=== PATIENT | female | born 1955 | race American Indian/Alaskan Native ===

== ENCOUNTER 2017-03-14 23:32 | Emergency (ER) | payer OTHER ==
[2017-03-15 00:40] LABS: Basophils % (Auto) 0.8 % (0.0-1.8); Eosinophils % (Auto) 2.6 % (0.0-4.3); Hematocrit 44.3 % (30.3-42.9); Hemoglobin 14.1 gm/dl (10.1-14.3); Mean Corpuscular HGB Conc 32 % (30-34); Mean Corpuscular Hemoglobin 26 pg (28-32); Mean Corpuscular Volume 83 fl (79-97); Platelet Count 230 K/mm3 (140-440); Red Blood Count 5.36 M/mm3 (3.65-5.03); Red Cell Distribution Width 14.1 % (13.2-15.2); White Blood Count 10.3 K/mm3 (4.5-11.0)
[2017-03-15 00:51] LABS: INR 0.94 (0.87-1.13)
[2017-03-15 00:52] LABS: Partial Thromboplastin Time 25.3 Sec. (24.2-36.6)
[2017-03-15 00:55] LABS: Bacteria,Urine 1+ /HPF (Negative); Bilirubin,Urine NEG (Negative); Blood,Urine NEG (Negative); Ketones,Urine NEG (Negative); Leukocyte Esterase,Urine LG (Negative); Mucus,Urine FEW /HPF; Nitrite,Urine NEG (Negative); Protein,Urine <15 mg/dL mg/dL (Negative); Urobilinogen,Urine < 2.0 mg/dL (<2.0)
[2017-03-15 01:03] LABS: Anion Gap 20 mmol/L; BUN/Creatinine Ratio 22.85; Blood Urea Nitrogen 16 mg/dL (7-17); Calcium 9.4 mg/dL (8.4-10.2); Carbon Dioxide 23 mmol/L (22-30); Chloride 103.1 mmol/L (98-107); Glucose 143 mg/dL (65-100); Potassium 3.7 mmol/L (3.6-5.0); Sodium 142 mmol/L (137-145)
--- NOTE | 2017-03-15 02:25 | Cat Scan Report ---
FINAL REPORT PROCEDURE: CT HEAD/BRAIN WO CON TECHNIQUE: Computerized tomography of the head was performed without contrast material. HISTORY: LT ARM NUMBNESS SLURRED SPEECH EARLIER COMPARISON: No prior studies are available for comparison. FINDINGS: Skull and scalp: Normal. Paranasal sinuses: Normal. Ventricles and subarachnoid spaces: Normal. Cerebrum: No evidence of hemorrhage, acute infarction or mass . Cerebellum and brainstem: No evidence of hemorrhage, acute infarction or mass. Vasculature: Normal. Comments: None. IMPRESSION: Normal Examination
[2017-03-15 04:04] VITALS: BP 148/91
== END 2017-03-15 05:30 | disposition left against medical advice (07) ==
LOC: ED 23:32
DX: R07.9 Chest pain, unspecified (principal); R47.81 Slurred speech; Z53.21 Procedure and treatment not carried out due to patient leaving prior to being seen by health care provider
CPT/HCPCS: 36415; 70450; 80048; 81001; 84484; 85025; 85610; 85670; 85730; 93005; 93010

== ENCOUNTER 2017-09-27 19:18 | Inpatient (IN) | payer OTHER ==
[2017-09-27] MEDS ORDERED: ASPIRIN PO ONE (19:53)
[2017-09-27 20:15] LABS: Basophils # (Auto) 0.1 K/mm3 (0.0-0.1); Basophils % (Auto) 1.1 % (0.0-1.8); Eosinophils # (Auto) 0.2 K/mm3 (0.0-0.4); Eosinophils % (Auto) 1.8 % (0.0-4.3); Hematocrit 43.1 % (30.3-42.9); Hemoglobin 14.2 gm/dl (10.1-14.3); Lymphocytes # (Auto) 2.5 K/mm3 (1.2-5.4); Lymphocytes % (Auto) 25.8 % (13.4-35.0); Mean Corpuscular HGB Conc 33 % (30-34); Mean Corpuscular Hemoglobin 27 pg (28-32); Mean Corpuscular Volume 82 fl (79-97); Monocytes # (Auto) 0.6 K/mm3 (0.0-0.8); Monocytes % (Auto) 6.6 % (0.0-7.3); Platelet Count 239 K/mm3 (140-440); Red Blood Count 5.26 M/mm3 (3.65-5.03); Red Cell Distribution Width 14.1 % (13.2-15.2)
[2017-09-27 20:27] LABS: BUN/Creatinine Ratio 18; Blood Urea Nitrogen 11 mg/dL (7-17); Hemolysis Index 15
--- NOTE | 2017-09-27 22:06 | Emergency Department Report ---
HPI - General Chief Complaint: Chest Pain Time Seen by Provider: 09/27/17 21:33 - HPI HPI: 61 year-old female presents to the emergency department with the complaint of a 2-3 day history of some dizziness, feeling off balance, headache, jaw pain, chest pressure. She says that when she is walking she feels like she is falling or leaning to the left. She denies any slurring of her speech but sometimes feels like it is difficult to get the words out. She has a past medical history of diabetes, hypertension, hyperlipidemia and a previous TIA. She says that there is some family history and her mother and her sister of early heart disease. She has not taken anything for symptoms or presentation. She denies any tobacco or illicit drug use or abuse. No recent travel or sick contacts at home. Her primary care physician is a Dr. Ami Adame, but she has not seen them regarding her symptoms. ED Past Medical Hx - Past Medical History Previous Medical History?: Yes Hx Hypertension: Yes Hx Diabetes: Yes Additional medical history: TIA, High Cholestrol - Surgical History Past Surgical History?: Yes Additional Surgical History: Back SX - Social History Smoking Status: Never Smoker Substance Use Type: None - Medications Home Medications: Home Medications Medication Instructions Recorded Confirmed Last Taken Type AtorvaSTATin [Lipitor] 20 mg PO QHS 09/27/17 09/27/17 Unknown History Citalopram [celeXA] 10 mg PO QDAY 09/27/17 09/27/17 Unknown History amLODIPine [Norvasc] 5 mg PO DAILY 09/27/17 09/27/17 Unknown History metFORMIN [Glucophage] 500 mg PO DAILY 09/27/17 09/27/17 Unknown History ED Review of Systems ROS: Stated complaint: HTN,DIZZINESS,LEFT ARM,JAW PAIN Other details as noted in HPI Comment: All other systems reviewed and negative Constitutional: denies: chills, fever Eyes: denies: eye pain, eye discharge, vision change ENT: denies: ear pain, throat pain Respiratory: denies: cough, shortness of breath, wheezing Cardiovascular: chest pain. denies: edema Gastrointestinal: denies: abdominal pain, nausea, diarrhea Genitourinary: denies: urgency, dysuria, discharge Skin: denies: rash, lesions Neurological: headache, other (dizziness, dysequilibrium) Physical Exam - Physical Exam Vital Signs: Vital Signs 09/27/17 19:43 Temperature 98.3 F Pulse Rate 70 Respiratory 18 Rate Blood Pressure 153/77 O2 Sat by Pulse 98 Oximetry Physical Exam: GENERAL: The patient is well-developed well-nourished. HENT: Normocephalic. Atraumatic. Patient has moist mucous membranes. EYES: Extraocular motions are intact. Pupils equal reactive to light bilaterally. There is fatigable horizontal nystagmus. NECK: Supple. Trachea is midline. CHEST/LUNGS: Clear to auscultation. There is no respiratory distress noted. Chest pain is not reproducible to palpation of the chest wall. HEART/CARDIOVASCULAR: Regular. There is no tachycardia. There is no murmur. ABDOMEN: Abdomen is soft, nontender. Patient has normal bowel sounds. There is no abdominal distention. SKIN: Skin is warm and dry. NEURO: The patient is awake, alert, and oriented. The patient is cooperative. The patient has no focal neurologic deficits. The patient has normal speech. Cranial nerves II through XII grossly intact. No pronator drift. No dysmetria. MUSCULOSKELETAL: There is no tenderness or deformity. There is no limitation range of motion. There is no evidence of acute injury. ED Course Vital Signs 09/27/17 19:43 Temperature 98.3 F Pulse Rate 70 Respiratory 18 Rate Blood Pressure 153/77 O2 Sat by Pulse 98 Oximetry - Reevaluation(s) Reevaluation #1: The patient would be an NIH stroke scale of 0. Also the patient has been having these symptoms for a few days and therefore would not be a TPA candidate. 09/27/17 23:29 ED Medical Decision Making - Lab Data Result diagrams: 09/27/17 20:03 09/27/17 20:03 - EKG Data -: EKG Interpreted by Me EKG shows normal: sinus rhythm, axis (left axis deviation), intervals, QRS complexes (LVH, septal Q waves), ST-T waves Rate: normal - EKG Data When compared to previous EKG there are: previous EKG unavailable Interpretation: other (sinus rhythm, left axis deviation, LVH, Q waves to the septal leads) - Radiology Data Radiology results: report reviewed, image reviewed interpreted by me: Chest x-ray does not show any acute process. There are no pleural effusions, obvious pneumonia and there is no pneumothorax. PROCEDURE: CT head without contrast. TECHNIQUE: Computerized tomography of the head was performed without contrast material. HISTORY: Headache, dizziness. COMPARISON: CT head 03/14/2017. FINDINGS: The ventricles are normal in size. The arriaza matter and white matter appear normal. There are no mass lesions. There is no intracranial hemorrhage. The calvarium appears intact. The mastoid air cells and paranasal sinuses are clear as far as visualized. IMPRESSION: Normal study. Transcribed By: MRM Dictated By: CHINA SOLER MD Electronically Authenticated By: CHNIA SOLER MD Signed Date/Time: 09/27/17 5836 - Medical Decision Making Patient presents with headache, feelings of disequilibrium/dizziness, chest pain /pressure. She has the risk factors of hypertension, hyperlipidemia, diabetes and some family history of coronary artery disease. She has never had a stress test or at least not one recently. EKG does not show any ST elevation MN. Chest x-ray does not show any acute process. CT scan of the head does not show any bleed, shift, mass or any acute process. If this were some type of atypical stroke or TIA, the patient would be a 0 on the NIH stroke scale. However despite the patient's negative workup thus far, she has multiple risk factors and comorbidities towards coronary artery disease and still feels off balance when ambulating. She will be admitted to the hospital for further evaluation and has been accepted for admission by hospitalist, Dr. Alvarenga. - Differential Diagnosis MN, TIA, CVA, Vertigo, Dysrythmia Critical Care Time: No Critical care attestation.: If time is entered above; I have spent that time in minutes in the direct care of this critically ill patient, excluding procedure time. ED Disposition Clinical Impression: Dizziness Chest pain Qualifiers: Chest pain type: unspecified Qualified Code(s): R07.9 - Chest pain, unspecified Headache Qualifiers: Headache type: unspecified Headache chronicity pattern: unspecified pattern Intractability: not intractable Qualified Code(s): R51 - Headache Disposition: -09 OP ADMIT IP TO THIS HOSP Is pt being admited?: Yes Condition: Stable Instructions: Chest Pain (ED) Referrals: CHINA LEON MD [Primary Care Provider] - 3-5 Days Time of Disposition: 23:06
--- NOTE | 2017-09-27 22:58 | Cat Scan Report ---
FINAL REPORT PROCEDURE: CT head without contrast. TECHNIQUE: Computerized tomography of the head was performed without contrast material. HISTORY: Headache, dizziness. COMPARISON: CT head 03/14/2017. FINDINGS: The ventricles are normal in size. The arriaza matter and white matter appear normal. There are no mass lesions. There is no intracranial hemorrhage. The calvarium appears intact. The mastoid air cells and paranasal sinuses are clear as far as visualized. IMPRESSION: Normal study.
--- NOTE | 2017-09-27 23:13 | History and Physical Report ---
History of Present Illness Date of examination: 09/27/17 Chief complaint: Chest tightness History of present illness: 69-year-old -Citizen Of [place] female with past medical history significant for diabetes mellitus, neuropathy, hypertension, TIA presented to the emergency department complaining of chest heaviness as started this afternoon. Midsternal heaviness, 7 of 10 in intensity, constant, associated with his cough , no aggravating or aggravating factors identified. Patient said not feeling good for the last 2 days, feeling some dizziness, pain in the left arm. Patient didn't have any cardiac workup for the last 3 or 4 years. REVIEW OF SYSTEMS: GENERAL: no weight change, no fatigue, no fever HEAD: no head ache EYES: no blurry vision, no acute visual loss EARS: no hearing loss, no discharge, no earache NOSE: no stuffiness, no sneezing, no discharge MOUTH, THROAT AND NECK: no bleeding gums, no sore throat, no swollen neck CARDIAC: As stated in the HPI. RESPIRATORY: no shortness of breath, no wheeze, + cough, no sputum, no hemoptysis, no asthma GI: no decreased appetite, no nausea, no vomiting, no dysphagia, no diarrhea, no constipation, no abdominal pain URINARY: no change in frequency, no urgency, no polyuria, no hematuria, no incontinence MUSCULOSKELETAL: no muscle weakness, no pain, no joint stiffness NEUROLOGIC: no loss of sensation/numbness, no tingling, no tremors, no weakness/ paralysis HEMATOLOGIC: no anemia, no easy bruising SKIN: no rashes ENDOCRINE: no heat/cold intolerance, no polyuria, no polydipsia, no thyroid problems, + diabetes PSYCHIATRIC: no anxiety, no depression, no suicidal ideations Past History Past Medical History: diabetes, hypertension, hyperlipidemia Past Surgical History: Other (back surgery) Social history: full code. denies: smoking, alcohol abuse, prescription drug abuse, IV drug use Family history: no significant family history Medications and Allergies Allergies Allergy/AdvReac Type Severity Reaction Status Date / Time sulfamethoxazole Allergy Nausea Verified 09/27/17 19:49 [From Bactrim] trimethoprim [From Bactrim] Allergy Nausea Verified 09/27/17 19:49 Home Medications Medication Instructions Recorded Confirmed Last Taken Type AtorvaSTATin [Lipitor] 20 mg PO QHS 09/27/17 09/27/17 Unknown History Citalopram [celeXA] 10 mg PO QDAY 09/27/17 09/27/17 Unknown History amLODIPine [Norvasc] 5 mg PO DAILY 09/27/17 09/27/17 Unknown History metFORMIN [Glucophage] 500 mg PO DAILY 09/27/17 09/27/17 Unknown History Active Meds: Active Medications Heparin Sodium (Porcine) (Heparin) 5,000 unit SUB-Q Q8HR THERESA Exam - Physical Exam Narrative exam: Not in cardiopulmonary distress. The patient is obese. Vital signs as documented. Head exam is unremarkable. No scleral icterus . Neck is without jugular venous distension, thyromegaly, or carotid bruits. Lungs are clear to auscultation. Cardiac exam reveals regular rate and Rhythm. First and second heart sounds normal. No murmurs, rubs or gallops. Abdominal exam reveals normal bowel sounds, no masses, no organomegaly and no aortic enlargement. Extremities are nonedematous and both femoral and pedal pulses are normal. VIDEO [employer]: Alert and oriented 3. No focal weakness. - Constitutional Vitals: Temp Pulse Resp BP Pulse Ox 98.3 F 58 L 20 138/74 98 09/27/17 19:43 09/27/17 22:40 09/27/17 22:44 09/27/17 22:40 09/27/17 22:40 Results - Labs CBC & Chem 7: 09/28/17 00:52 09/28/17 00:52 Labs: Laboratory Last Values WBC 9.8 K/mm3 (4.5-11.0) 09/27/17 20:03 RBC 5.26 M/mm3 (3.65-5.03) H 09/27/17 20:03 Hgb 14.2 gm/dl (10.1-14.3) 09/27/17 20:03 Hct 43.1 % (30.3-42.9) H 09/27/17 20:03 MCV 82 fl (79-97) 09/27/17 20:03 MCH 27 pg (28-32) L 09/27/17 20:03 MCHC 33 % (30-34) 09/27/17 20:03 RDW 14.1 % (13.2-15.2) 09/27/17 20:03 Plt Count 239 K/mm3 (140-440) 09/27/17 20:03 Lymph % (Auto) 25.8 % (13.4-35.0) 09/27/17 20:03 [place] % (Auto) 6.6 % (0.0-7.3) 09/27/17 20:03 Eos % (Auto) 1.8 % (0.0-4.3) 09/27/17 20:03 Baso % (Auto) 1.1 % (0.0-1.8) 09/27/17 20:03 Lymph # 2.5 K/mm3 (1.2-5.4) 09/27/17 20:03 [place] # 0.6 K/mm3 (0.0-0.8) 09/27/17 20:03 Eos # 0.2 K/mm3 (0.0-0.4) 09/27/17 20:03 Baso # 0.1 K/mm3 (0.0-0.1) 09/27/17 20:03 Seg Neutrophils % 64.7 % (40.0-70.0) 09/27/17 20:03 Seg Neutrophils # 6.4 K/mm3 (1.8-7.7) 09/27/17 20:03 Sodium 143 mmol/L (137-145) 09/27/17 20:03 Potassium 4.4 mmol/L (3.6-5.0) 09/27/17 20:03 Chloride 102.6 mmol/L (98-107) 09/27/17 20:03 Carbon Dioxide 27 mmol/L (22-30) 09/27/17 20:03 Anion Gap 18 mmol/L 09/27/17 20:03 BUN 11 mg/dL (7-17) 09/27/17 20:03 Creatinine 0.6 mg/dL (0.7-1.2) L 09/27/17 20:03 Estimated GFR > 60 ml/min 09/27/17 20:03 BUN/Creatinine Ratio 18 % 09/27/17 20:03 Glucose 141 mg/dL (65-100) H 09/27/17 20:03 Calcium 9.0 mg/dL (8.4-10.2) 09/27/17 20:03 Troponin T < 0.010 ng/mL (0.00-0.029) 09/27/17 20:03 NT-Pro-B Natriuret Pep 15.46 pg/mL (0-900) 09/27/17 22:02 TSH 1.280 mlU/mL (0.270-4.200) 09/27/17 22:02 Assessment and Plan Assessment and plan: Chest tightness - cardiac enzymes are negative, EKG no acute ischemia - NM stress test in the morning HTN - continue home medications DM2 - on metformin HLD - on statin DVT - on lovenox Advance Directives: Yes VTE prophylaxis?: Chemical Contraindication Mechanical VTE Prophylaxis: Contraindicated Plan of care discussed with patient/family: Yes
[2017-09-27] MEDS ORDERED: SODIUM CHLORIDE FLUSH SYRINGE 10 ML IV PRN (23:31)
--- NOTE | 2017-09-27 23:31 | XRay Report ---
FINAL REPORT PROCEDURE: Chest. TECHNIQUE: Portable AP view. HISTORY: Chest pain. COMPARISON: No prior studies are available for comparison. FINDINGS: The heart size is normal. There is mild tortuosity of the thoracic aorta. The lungs are clear and well expanded. There are no pleural effusions. The soft tissues and regional skeleton are unremarkable. IMPRESSION: Negative portable chest.
[2017-09-28 01:08] LABS: Basophils # (Auto) 0.1 K/mm3 (0.0-0.1); Basophils % (Auto) 1.1 % (0.0-1.8); Eosinophils # (Auto) 0.2 K/mm3 (0.0-0.4); Eosinophils % (Auto) 1.9 % (0.0-4.3); Hematocrit 45.4 % (30.3-42.9); Hemoglobin 14.5 gm/dl (10.1-14.3); Lymphocytes # (Auto) 3.3 K/mm3 (1.2-5.4); Lymphocytes % (Auto) 29.1 % (13.4-35.0); Mean Corpuscular HGB Conc 32 % (30-34); Mean Corpuscular Hemoglobin 26 pg (28-32); Mean Corpuscular Volume 83 fl (79-97); Monocytes # (Auto) 0.8 K/mm3 (0.0-0.8); Monocytes % (Auto) 6.9 % (0.0-7.3); Red Blood Count 5.49 M/mm3 (3.65-5.03); Red Cell Distribution Width 13.8 % (13.2-15.2)
[2017-09-28 01:21] LABS: Platelet Count 190 K/mm3 (140-440)
[2017-09-28 01:27] LABS: BUN/Creatinine Ratio 28; Blood Urea Nitrogen 14 mg/dL (7-17); Calcium 9.2 mg/dL (8.4-10.2); Hemolysis Index 20
[2017-09-28] MEDS: HEPARIN SUB-Q SCH ×3 (06:12→21:42)
[2017-09-28] MEDS: GLUCOPHAGE PO SCH (09:11)
[2017-09-28] MEDS ORDERED: celeXA PO SCH (10:00)
[2017-09-28] MEDS ORDERED: LEXISCAN IV ONE ×2 (10:03→10:08)
--- NOTE | 2017-09-28 14:08 | Progress Note ---
<ALEXUS NICOLE - Last Filed: 09/28/17 14:09> Assessment and Plan Assessment and plan: 69-year-old -[place] female with past medical history significant for diabetes mellitus, neuropathy, hypertension, TIA presented to the emergency department complaining of chest heaviness as started this afternoon. Midsternal heaviness, 7 of 10 in intensity, constant, associated with his cough , no aggravating or aggravating factors identified. Patient said not feeling good for the last 2 days, feeling some dizziness, pain in the left arm. Chest tightness - cardiac enzymes are negative, EKG no acute ischemia - NM stress test results pending HTN - Controlled on current regimen, continue DM2 - on metformin, A1c 6.9 Hyperlipidemia - on statin, cholesterol panel pending DVT - on lovenox History Interval history: Patient seen and examined. She states that she feels better today. No new issues overnight. She denies chest pain, shortness of breath, nausea vomiting. denies notes reviewed. Hospitalist Physical - Constitutional Vitals: Temp Pulse Resp BP Pulse Ox 98.1 F 56 L 20 121/65 99 09/28/17 07:24 09/28/17 07:24 09/28/17 07:24 09/28/17 07:24 09/28/17 07:24 General appearance: Present: no acute distress, well-nourished - EENT Eyes: Present: PERRL, EOM intact ENT: hearing intact, clear oral mucosa - Neck Neck: Present: supple, normal ROM - Respiratory Respiratory effort: normal Respiratory: bilateral: CTA - Cardiovascular Rhythm: regular Heart Sounds: Present: S1 & S2 - Extremities Extremities: no ischemia, No edema - Abdominal General gastrointestinal: soft, non-distended - Integumentary Integumentary: Present: clear, warm, dry - Psychiatric Psychiatric: appropriate mood/affect, intact judgment & insight, cooperative - Neurologic Neurologic: CNII-XII intact, moves all extremities - Allied Health Allied health notes reviewed: nursing Results - Labs CBC & Chem 7: 09/28/17 00:52 09/28/17 00:52 Labs: Laboratory Last Values WBC 11.3 K/mm3 (4.5-11.0) H 09/28/17 00:52 RBC 5.49 M/mm3 (3.65-5.03) H 09/28/17 00:52 Hgb 14.5 gm/dl (10.1-14.3) H 09/28/17 00:52 Hct 45.4 % (30.3-42.9) H 09/28/17 00:52 MCV 83 fl (79-97) 09/28/17 00:52 MCH 26 pg (28-32) L 09/28/17 00:52 MCHC 32 % (30-34) 09/28/17 00:52 RDW 13.8 % (13.2-15.2) 09/28/17 00:52 Plt Count 190 K/mm3 (140-440) 09/28/17 00:52 Lymph % (Auto) 29.1 % (13.4-35.0) 09/28/17 00:52 [place] % (Auto) 6.9 % (0.0-7.3) 09/28/17 00:52 Eos % (Auto) 1.9 % (0.0-4.3) 09/28/17 00:52 Baso % (Auto) 1.1 % (0.0-1.8) 09/28/17 00:52 Lymph # 3.3 K/mm3 (1.2-5.4) 09/28/17 00:52 [place] # 0.8 K/mm3 (0.0-0.8) 09/28/17 00:52 Eos # 0.2 K/mm3 (0.0-0.4) 09/28/17 00:52 Baso # 0.1 K/mm3 (0.0-0.1) 09/28/17 00:52 Seg Neutrophils % 61.0 % (40.0-70.0) 09/28/17 00:52 Seg Neutrophils # 6.9 K/mm3 (1.8-7.7) 09/28/17 00:52 Sodium 142 mmol/L (137-145) 09/28/17 00:52 Potassium 4.2 mmol/L (3.6-5.0) 09/28/17 00:52 Chloride 102.9 mmol/L (98-107) 09/28/17 00:52 Carbon Dioxide 23 mmol/L (22-30) 09/28/17 00:52 Anion Gap 20 mmol/L 09/28/17 00:52 BUN 14 mg/dL (7-17) 09/28/17 00:52 Creatinine 0.5 mg/dL (0.7-1.2) L 09/28/17 00:52 Estimated GFR > 60 ml/min 09/28/17 00:52 BUN/Creatinine Ratio 28 % 09/28/17 00:52 Glucose 110 mg/dL (65-100) H 09/28/17 00:52 POC Glucose 95 (70-105) 09/28/17 08:39 Hemoglobin A1c 6.9 % (4-6) H 09/28/17 00:52 Calcium 9.2 mg/dL (8.4-10.2) 09/28/17 00:52 Troponin T < 0.010 ng/mL (0.00-0.029) 09/28/17 00:52 NT-Pro-B Natriuret Pep 15.46 pg/mL (0-900) 09/27/17 22:02 TSH 1.280 mlU/mL (0.270-4.200) 09/27/17 22:02 <ELVIE SHAFER - Last Filed: 09/28/17 21:06> Assessment and Plan Assessment and plan: I saw and evaluated the patient. I agree with the findings and the plan of care as documented in the PA's~note, with the following corrections and additions. Concerning for Lacunar TIA per neurology, Contineu asa and statin Hospitalist Physical - Constitutional Vitals: Temp Pulse Resp BP Pulse Ox 98.2 F 68 18 129/62 98 09/28/17 19:36 09/28/17 19:36 09/28/17 19:36 09/28/17 19:36 09/28/17 19:36 Results - Labs CBC & Chem 7: 09/28/17 00:52 09/28/17 00:52 Labs: Laboratory Last Values WBC 11.3 K/mm3 (4.5-11.0) H 09/28/17 00:52 RBC 5.49 M/mm3 (3.65-5.03) H 09/28/17 00:52 Hgb 14.5 gm/dl (10.1-14.3) H 09/28/17 00:52 Hct 45.4 % (30.3-42.9) H 09/28/17 00:52 MCV 83 fl (79-97) 09/28/17 00:52 MCH 26 pg (28-32) L 09/28/17 00:52 MCHC 32 % (30-34) 09/28/17 00:52 RDW 13.8 % (13.2-15.2) 09/28/17 00:52 Plt Count 190 K/mm3 (140-440) 09/28/17 00:52 Lymph % (Auto) 29.1 % (13.4-35.0) 09/28/17 00:52 [place] % (Auto) 6.9 % (0.0-7.3) 09/28/17 00:52 Eos % (Auto) 1.9 % (0.0-4.3) 09/28/17 00:52 Baso % (Auto) 1.1 % (0.0-1.8) 09/28/17 00:52 Lymph # 3.3 K/mm3 (1.2-5.4) 09/28/17 00:52 [place] # 0.8 K/mm3 (0.0-0.8) 09/28/17 00:52 Eos # 0.2 K/mm3 (0.0-0.4) 09/28/17 00:52 Baso # 0.1 K/mm3 (0.0-0.1) 09/28/17 00:52 Seg Neutrophils % 61.0 % (40.0-70.0) 09/28/17 00:52 Seg Neutrophils # 6.9 K/mm3 (1.8-7.7) 09/28/17 00:52 Sodium 142 mmol/L (137-145) 09/28/17 00:52 Potassium 4.2 mmol/L (3.6-5.0) 09/28/17 00:52 Chloride 102.9 mmol/L (98-107) 09/28/17 00:52 Carbon Dioxide 23 mmol/L (22-30) 09/28/17 00:52 Anion Gap 20 mmol/L 09/28/17 00:52 BUN 14 mg/dL (7-17) 09/28/17 00:52 Creatinine 0.5 mg/dL (0.7-1.2) L 09/28/17 00:52 Estimated GFR > 60 ml/min 09/28/17 00:52 BUN/Creatinine Ratio 28 % 09/28/17 00:52 Glucose 110 mg/dL (65-100) H 09/28/17 00:52 POC Glucose 95 (70-105) 09/28/17 08:39 Hemoglobin A1c 6.9 % (4-6) H 09/28/17 00:52 Calcium 9.2 mg/dL (8.4-10.2) 03 00:52 Troponin T < 0.010 ng/mL (0.00-0.029) 09/28/17 00:52 NT-Pro-B Natriuret Pep 15.46 pg/mL (0-900) 09/27/17 22:02 Triglycerides 148 mg/dL (2-149) 09/28/17 00:52 Cholesterol 195 mg/dL (50-199) 09/28/17 00:52 LDL Cholesterol Direct 118 mg/dL (50-130) 09/28/17 00:52 HDL Cholesterol 48 mg/dL (40-59) 09/28/17 00:52 Cholesterol/HDL Ratio 4.06 % 09/28/17 00:52 Vitamin B12 796.0 pg/mL (211-911) 09/28/17 16:10 Folate 14.34 ng/mL (7.3-26.0) 09/28/17 16:11 TSH 1.280 mlU/mL (0.270-4.200) 09/27/17 22:02 Free T4 1.14 ng/dL (0.76-1.46) 09/28/17 16:04
--- NOTE | 2017-09-28 14:53 | Magnetic Resonance Report ---
MRI OF THE BRAIN WITHOUT CONTRAST: HISTORY: TIA PROCEDURE: Multiplanar, multisequence MR imaging of the brain without IV contrast was performed. FINDINGS: Compared to the CT brain dated 09/27/17. The brain parenchyma signal intensity and its [place] white interface are within normal limits on all sequences. No evidence for acute ischemia, hemorrhage or mass. No chronic infarct or extra-axial fluid collection. The midline structures are central. The basal cisterns are patent. Normal ventricular size. The orbital cavities and sella turcica demonstrate no abnormality. The visualized paranasal sinuses and mastoid air cells are well aerated. IMPRESSION: Unremarkable non-enhanced MRI of the brain.
[2017-09-28] MEDS: NORVASC PO SCH (15:03)
[2017-09-28] MEDS: BABY ASPIRIN PO SCH (15:04)
[2017-09-28 16:36] LABS: Chol/HDL Ratio 4.06 %; HDL Cholesterol 48 mg/dL (40-59); LDL Cholesterol,Direct 118 mg/dL (50-130)
--- NOTE | 2017-09-28 19:38 | Consultation ---
History of Present Illness Consult date: 09/28/17 Requesting physician: ELVIE SHAFER Reason for Consult: dizziness, dysphasia Chief complaint: dizziness with falling to right, difficulty getting words out History of present illness: This 61-year-old right-handed -Armenian female per Dr. Slaughter in the ER has "a 2-3 day history of some dizziness, feeling off balance, headache, jaw pain, chest pressure. She says that when she is walking she feels like she is falling or leaning to the left. 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 She then lay down and did not take her usual amlodipine and she also did not take the amlodipine yesterday. Monday evening she had difficulty saying words which was worse yesterday. She went to the fire department yesterday but no one was there. She then went to [facility] pharmacy where blood pressure was 168/77 and the pharmacist advised her to go to the emergency room. Her home BP machine has not been working. A year ago she was switched from lisinopril to hydrochlorothiazide and 2 weeks ago that was switched to amlodipine. She has been placed on 81 mg of aspirin which she was not taking at home. She was taking Lipitor 20 mg daily at home and takes Celexa for depression and anxiety and has been on metformin just for 2 weeks. MRI reviewed is negative on diffusion and GRE is negative except for the calcium also visible on CT scan between the hemispheres. FLAIR sequence shows a few lacunae specially visible on coronal view. Past History Past Medical History: diabetes, hypertension, hyperlipidemia, other (had a TIA involving dizziness and decreased speech to-3 years ago lasting about 2 days.) Past Surgical History: Other (back surgery) Social history: full code, other (some marijuana as a teen. 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 denies: smoking (only in her teens), alcohol abuse (1 glass of wine per month though she had 2 days in a row of 1 glass per day this weekend on a trip to [place]), prescription drug abuse, IV drug use Family history: no significant family history, hypertension (mother and brother) , stroke (TIA in her mother), other (sister and the sister's daughter) Medications and Allergies Allergies Allergy/AdvReac Type Severity Reaction Status Date / Time sulfamethoxazole Allergy Nausea Verified 09/27/17 19:49 [From Bactrim] trimethoprim [From Bactrim] Allergy Nausea Verified 09/27/17 19:49 Home Medications Medication Instructions Recorded Confirmed Last Taken Type AtorvaSTATin [Lipitor] 20 mg PO QHS 09/27/17 09/27/17 Unknown History Citalopram [celeXA] 10 mg PO QDAY 09/27/17 09/27/17 Unknown History amLODIPine [Norvasc] 5 mg PO DAILY 09/27/17 09/27/17 Unknown History metFORMIN [Glucophage] 500 mg PO DAILY 09/27/17 09/27/17 Unknown History Active Meds: Active Medications Amlodipine Besylate (Norvasc) 5 mg PO DAILY [facility] Last Admin: 09/28/17 15:03 Dose: 5 mg Aspirin (Baby Aspirin) 81 mg PO QDAY [facility] Last Admin: 09/28/17 15:04 Dose: 81 mg Atorvastatin Calcium (Lipitor) 20 mg PO QHS [facility] Citalopram Hydrobromide (Celexa) 10 mg PO QDAY [facility] Last Admin: 09/28/17 15:03 Dose: 10 mg Heparin Sodium (Porcine) (Heparin) 5,000 unit SUB-Q Q8HR [facility] Last Admin: 09/28/17 15:32 Dose: Not Given Metformin HCl (Glucophage) 500 mg PO QDDIAB [facility] Last Admin: 09/28/17 09:11 Dose: Not Given Sodium Chloride (Sodium Chloride Flush Syringe 10 Ml) 10 ml IV PRN PRN PRN Reason: LINE FLUSH Review of Systems All systems: negative (left frontal headache with nausea intermittently for the past 2 weeks and more chronic left frontal headaches without nausea for 4-5 years. One blackout 10 years ago. Has sleep apnea and uses CPAP which gives her more energy. Some short-term memory problems more than remote memory problems, all her life) Physical Examination - Vital Signs Vital Signs: Vital Signs Temp Pulse Resp BP Pulse Ox 98.3 F 70 18 153/77 98 09/27/17 19:43 09/27/17 19:43 09/27/17 19:43 09/27/17 19:43 09/27/17 19:43 - Physical Exam Narrative exam: General Appearance: well developed but obese (per BMI) early 60s - Armenian female in NAD. HEENT: atraumatic, normocephalic; no bruits, 2+ Le[place] without soreness or induration or enlargement, sclerae nonicteric. Oropharynx pink and moist. Neck: supple, no bruits. Heart: no murmur or extra sounds. Extremities: no clubbing, cyanosis or edema. 2+ posterior tibial/dorsalis pedis pulses bilaterally. Neurologic Exam: Mental Status: Awake, alert, oriented X 3, speech is clear, names pen and point of pen, and abstracts well. Names President and Encephalographer, serial 7's intact, no right-left confusion, gets 1 of 3 objects at 3 minutes and a second item after first letter prompt, spells WORLD backwards correctly. Cranial Nerves: li full, no papilledema, SVPs present, PERRLA, EOMs full without nystagmus or diplopia, facial sensation intact to pinprick and light touch, slightly downturned left corner of mouth, [place]alante is midline, palate rises symmetrically to phonation, shoulder shrug is 5 X 2, tongue protrudes midline. Cerebellar: finger to nose off target on the right without tremor and slightly dysmetric on the left without tremor, heel to fragoso is intact bilaterally Sensory: Decreased to light touch in left lower leg but not the foot, pinprick and vibrations are intact. Double simultaneous stimulation is intact. Motor Exam Upper Extremities: no drift or pronation, Mikal intact. Scrap Wheeler are 5 X 2, tone is normal. No atrophy or fasciculations are noted visually. Motor Exam Lower Extremities: No leg lag, quadriceps and anterior tibials and gastrocnemius are 5 bilaterally. Mikal intact. Tone is normal. No atrophy or fasciculations are noted visually. Reflexes: Palmomental and jaw jerk are negative but snout is slightly positive. Triceps are 1 right and trace left, biceps are 1+ right and trace to 1 left and brachioradialis are trace bilaterally. Marion's is negative bilaterally. Knee jerks are 0 right becoming trace with reinforcement and trace left and ankle jerks are 0 bilaterally even with reinforcement and without clonus. Toes are downgoing right and slightly upgoing left to Babinski testing. Results - Laboratory Findings CBC and BMP: 09/28/17 00:52 09/28/17 00:52 Abnormal Lab Findings: Abnormal Labs 09/27/17 09/27/17 09/28/17 20:03 20:03 00:52 WBC 11.3 H RBC 5.26 H 5.49 H Hgb 14.5 H Hct 43.1 H 45.4 H MCH 27 L 26 L Creatinine 0.6 L Glucose 141 H Hemoglobin A1c 09/28/17 09/28/17 00:52 00:52 WBC RBC Hgb Hct MCH Creatinine 0.5 L Glucose 110 H Hemoglobin A1c 6.9 H Assessment and Plan Impression: 1. Lacunar TIAs 2. Hypertension 3. Diabetes Plan: 1. CT angios of head and neck for stroke workup. 2. Advised her to check her blood pressure at home after work and before work to see the daily pattern and reported this to her primary care physician. 3. Continue amlodipine at home and 81 mg aspirin and her atorvastatin. Lipid panel is pending. 4. Check duplex results. Can correlate with CT angios 5. Echocardiogram with bubbles only if she has recurrence of TIA symptoms despite normal blood pressure. 6. Memory labs ordered. 45 minutes spent including review of 100s of MRI images. Thank you for interesting consultation on this pleasant early 60s lady. Sign off. Call with any unusual lab results or CT angiogram unusual results.
--- NOTE | 2017-09-28 22:21 | Treadmill Report ---
THALLIUM STRESS TEST LEFT VENTRICLE: Left ventricular chamber size is within normal. Perfusion study demonstrates homogenous uptake of the tracer in all segments, no significant perfusion defects identified. Gated analysis demonstrates normal left ventricular systolic function, ejection fraction greater than 70%. CONCLUSION: Normal myocardial perfusion study. JOB# [id number] CA/NTS
--- NOTE | 2017-09-28 23:32 | Cat Scan Report ---
FINAL REPORT PROCEDURE: CT ANGIO HEAD TECHNIQUE: Computerized tomographic angiography of the head was performed during the IV injection of iodinated nonionic contrast including image processing. The image data was postprocessed using 2-dimensional multiplanar reformatted (MPR) and 3-dimensional (MIP and/or volume rendered) techniques. HISTORY: dizziness COMPARISON: No prior studies are available for comparison. FINDINGS: The visualized portions of the internal carotid arteries appear widely patent. The carotid siphons A1 segments anterior cerebral arteries and middle cerebral arteries appear widely patent. Vertebral arteries basilar artery and posterior cerebral arteries also appear widely patent. No high-grade stenosis occlusion or vascular malformation is visualized. No aneurysm is seen. No abnormal areas of enhancement are seen in the brain parenchyma. Ventricles are normal size and are midline. No abnormal extra-axial fluid collections or masses are seen. IMPRESSION: Anterior and posterior circulation appear intact. No focal abnormalities are identified.
--- NOTE | 2017-09-28 23:40 | Cat Scan Report ---
FINAL REPORT PROCEDURE: CT ANGIO NECK TECHNIQUE: Computerized tomographic angiography of the neck was performed after the IV injection of iodinated nonionic contrast including image processing. The image data was postprocessed using 2-dimensional multiplanar reformatted (MPR) and 3-dimensional (MIP and/or volume rendered) techniques. HISTORY: dizziness COMPARISON: No prior studies are available for comparison. Note: Assessment of carotid artery stenosis is based on measurement of the distal internal carotid artery diameter as the denominator for stenosis calculations and the [place] Symptomatic Carotid Endarterectomy Trial (NASCET) stenosis criteria . CPT 3100F FINDINGS: The right common carotid artery proximally is mildly tortuous. The vessels widely patent. The carotid bulb and right internal carotid artery a patent although the internal carotid artery is tortuous. No dissection occlusion or stenosis visualized. On the left side the common carotid artery is also tortuous proximally. There is minimal calcified plaquing in the left carotid bulb. The internal carotid artery is tortuous otherwise widely patent. No dissection occlusion or stenosis is visualized. The vertebral arteries bilaterally are patent without occlusion or stenosis. IMPRESSION: The carotid arteries and vertebral arteries are widely patent. There tortuosity of the common carotid arteries and internal carotid arteries without stenosis dissection or occlusion.. Minimal calcified plaquing seen in the left carotid bulb. No other abnormalities are identified.
[2017-09-29] MEDS: HEPARIN SUB-Q SCH (06:30)
[2017-09-29] MEDS: BABY ASPIRIN PO SCH (10:18)
[2017-09-29] MEDS: NORVASC PO SCH (10:18)
[2017-09-29] MEDS: GLUCOPHAGE PO SCH (10:18)
--- NOTE | 2017-09-29 12:08 | Discharge Summary ---
Providers - Providers Date of Admission: 09/27/17 23:06 Attending physician: ELVIE SHAFER MD 09/27/17 Consult to Cardiac Rehabilitation [CONS] Routine Reason For Exam: Phase I 09/28/17 11:02 Consult to Physician [CONS] Routine Consulting Provider: BJ EATON Reason For Exam: tia Place consult to:: neuro Notified:: daniela Phone number called:: [phone] Was contact made?: Yes Time called:: 11:18 Comment:: left message on machine Primary care physician: CHINA LEON Hospitalization Condition: Stable Pertinent studies: Negative portable chest x-ray CT head was normal Unremarkable non-enhanced MRI of the brain. CTA neck showed The carotid arteries and vertebral arteries are widely patent. There tortuosity of the common carotid arteries and internal carotid arteries without stenosis dissection or occlusion. Minimal calcified plaquing seen in the left carotid bulb. No other abnormalities are identified. CTA head revealed Anterior and posterior circulation appear intact. No focal abnormalities are identified. CAROTID DUPLEX DONE.<50% STENOSIS BILATERALLY BY DOPPLER VELOCITIES.ANTEGRADE VERTEBRAL ARTERY FLOW BILATERALLY. Hospital course: 69-year-old -Palestinian female with past medical history significant for diabetes mellitus, neuropathy, hypertension, TIA presented to the emergency department complaining of chest heaviness as started this afternoon. Midsternal heaviness, 7 of 10 in intensity, constant, associated with his cough , no aggravating or aggravating factors identified. Patient said not feeling good for the last 2 days, feeling some dizziness, pain in the left arm. Patient had a neurological workup which was all negative and ruled out acute CVA. Etiology of patient's symptoms is likely due to TIA. Patient was initiated on aspirin therapy and was advised to continue her statin. Patient was clinically stable for discharge home and advised to follow up with her primary care provider within 7 days. She resumed all home medications. Discharge diagnoses TIA Chest tightness Hypertension Diabetes type 2 mellitus Hyperlipidemia DVT prophylaxis Disposition: - TO HOME OR SELFCARE Time spent for discharge: 32 minutes Core Measure Documentation - Palliative Care Palliative Care/ Comfort Measures: Not Applicable - Core Measures Any of the following diagnoses?: none Exam - Constitutional Vitals: Temp Pulse Resp BP Pulse Ox 98.3 F 70 20 132/77 98 09/29/17 09:10 09/29/17 09:10 09/29/17 09:10 09/29/17 09:10 09/29/17 08:24 General appearance: Present: no acute distress, well-nourished - EENT Eyes: Present: PERRL, EOM intact ENT: hearing intact, clear oral mucosa - Neck Neck: Present: supple, normal ROM - Respiratory Respiratory effort: normal Respiratory: bilateral: CTA - Cardiovascular Heart Sounds: Present: S1 & S2. Absent: rub, click - Extremities Extremities: pulses symmetrical, No edema Peripheral Pulses: within normal limits - Abdominal General gastrointestinal: Present: soft, non-tender, non-distended, normal bowel sounds Female genitourinary: Present: normal - Integumentary Integumentary: Present: clear, warm, dry - Musculoskeletal Musculoskeletal: gait normal, strength equal bilaterally - Psychiatric Psychiatric: appropriate mood/affect, intact judgment & insight - Neurologic Neurologic: CNII-XII intact, moves all extremities Plan Activity: no restrictions, advance as tolerated, fall precautions Weight Bearing Status: Weight Bear as Tolerated Diet: low fat, low cholesterol, low salt, diabetic Follow up with: CHINA LEON MD [Primary Care Provider] - 3-5 Days Forms: Work/School Release Form Prescriptions: Aspirin [Aspirin BABY CHEW TAB] 81 mg PO QDAY #30 tab.chew
[2017-09-29 12:52] VITALS: BP 124/64
--- NOTE | 2017-10-02 12:19 | Vascular Lab Report ---
CAROTID DUPLEX STUDY: RIGHT PSVEDV CCA PROX:[id number] CCA DIST:[id number] ICA PROX:[id number] ICA MID:[id number] ICA DIST:[id number] ECA: 585 VERT: 44 9 LEFT PSVEDV CCA [id number] CCA DIST:[id number] ICA PROX:5812 ICA MID:9127 ICA DIST:8224 ECA: 706 VERT: 62 16 REASON FOR EXAM: TIA. COMMENTS ON THE RIGHT: Doppler frequency analysis is consistent with 16 to 49 percent diameter reduction of the internal carotid artery. A small amount of eccentric plaque is seen in the bulb. The common carotid artery is patent. The external carotid artery is patent. The vertebral artery has antegrade flow. COMMENTS ON THE LEFT: Doppler frequency analysis is consistent with 16 to 49 percent diameter reduction of the internal carotid artery. Eccentric plaque is seen in the bulb. The common carotid artery is patent. The external carotid artery is patent. The vertebral artery has antegrade flow. IMPRESSION: Less than 50% diameter reduction in the internal carotid arteries bilaterally. Consider repeat carotid artery duplex in 12 months.
== END 2017-09-29 14:52 | disposition home or self-care (01) | DRG 69 ==
LOC: ED 19:18 → 4A 23:06
PROVIDERS: ADMIT Internal Medicine; ATTEND Internal Medicine
DX: G45.9 Transient cerebral ischemic attack, unspecified (principal); I10 Essential (primary) hypertension; Z88.8 Allergy status to other drugs, medicaments and biological substances; E78.00 Pure hypercholesterolemia, unspecified; Z79.84 Long term (current) use of oral hypoglycemic drugs; E11.40 Type 2 diabetes mellitus with diabetic neuropathy, unspecified; R07.89 Other chest pain
CPT/HCPCS: 36415; 70450; 70496; 70498; 70551; 71045; 78452; 80048; 80061; 82306; 82607; 82747; 82962; 83036; 83880; 84425; 84439; 84443; 84484; 85025; 93005; 93010; 93017; 93880; A9270-GY; A9502; J1644; J2785; Q9967

== ENCOUNTER 2018-12-26 19:38 | Inpatient (IN) | payer OTHER ==
--- NOTE | 2018-12-26 20:37 | Emergency Department Report ---
Blank Doc - Documentation Documentation: pt states that she went to urgent care and was advised to be evaluated in the ED pt is c/o left arm numbness that began 12/23/18 and has left frontal SHEPARD pt states she also believed she was having indigestion, has been substernal CP that began two days ago states it feels like a heaviness states the pain lasts for 60 seconds no SOB no emesis no vision changes PMHx DM, HTN, TIA, HLD non smoker occ drinker no drug use
[2018-12-26 21:07] LABS: Basophils # (Auto) 0.2 K/mm3 (0.0-0.1); Basophils % (Auto) 1.3 % (0.0-1.8); Eosinophils # (Auto) 0.2 K/mm3 (0.0-0.4); Eosinophils % (Auto) 1.8 % (0.0-4.3); Hematocrit 41.7 % (30.3-42.9); Hemoglobin 13.6 gm/dl (10.1-14.3); Lymphocytes # (Auto) 3.5 K/mm3 (1.2-5.4); Lymphocytes % (Auto) 30.3 % (13.4-35.0); Mean Corpuscular HGB Conc 33 % (30-34); Mean Corpuscular Volume 81 fl (79-97); Monocytes # (Auto) 0.6 K/mm3 (0.0-0.8); Monocytes % (Auto) 5.4 % (0.0-7.3); Red Blood Count 5.12 M/mm3 (3.65-5.03); Red Cell Distribution Width 13.9 % (13.2-15.2)
[2018-12-26 21:16] LABS: INR 0.87 (0.87-1.13)
[2018-12-26 21:17] LABS: Partial Thromboplastin Time 30.2 Sec. (24.2-36.6)
[2018-12-26 21:24] LABS: Platelet Count 254 K/mm3 (140-440)
[2018-12-26 21:33] LABS: BUN/Creatinine Ratio 15; Blood Urea Nitrogen 12 mg/dL (7-17); Calcium 9.6 mg/dL (8.4-10.2); Hemolysis Index 16
--- NOTE | 2018-12-26 22:15 | Cat Scan Report ---
PROCEDURE: CT HEAD/BRAIN WO CON TECHNIQUE: Computerized tomography of the head was performed without contrast material. CT DOSE LENGTH PRODUCT: 805.4 mGycm HISTORY: left sided SHEPARD, left arm numbness COMPARISONS: MRI brain dated September 28, [address] dated September 27, 2017 . FINDINGS: There is no evidence of an acute intracranial process, intracranial hemorrhage or mass effect. The ventricles are normal size. The visualized portions of the orbits, paranasal and mastoid sinuses are unremarkable. The bony structures are unremarkable. IMPRESSION: 1. No evidence of an acute intracranial process, intracranial hemorrhage or mass effect. If there is a clinical suspicion of an acute intracranial process, MRI brain may be helpful. This document is electronically signed by Bindu Lester MD., December 26 2018 10:13:07 PM ET
--- NOTE | 2018-12-26 22:22 | Emergency Department Report ---
ED General Adult HPI - General Chief complaint: Neuro Symptoms/Deficit Stated complaint: LEFT SIDED NUMBNESS Time Seen by Provider: 12/26/18 20:32 Source: patient, RN notes reviewed, old records reviewed Mode of arrival: Ambulatory Limitations: No Limitations - History of Present Illness Initial comments: This is a 64-year-old female. The patient is not known to this provider previously. She does not believe that she has a primary care doctor. Past medical history includes diabetes, TIA, hypertension, high cholesterol. Today, the patient presents to the emergency room with multiple complaints. Her first complaint is left upper extremity numbness. The numbness is present for the past 3-4 days. The numbness starts on the medial aspect of the hand, involving the pinky, ring, and middle finger, and radiates proximally. She reports it is constant there is no left lower extremity complaints. There is also a headache. The headache is frontal and bitemporal. The headache is not sudden or thunderclap in nature. The headache is not maximal in intensity. Her next complaint is chest wall pressure. The pressure is present for the past 2-3 days. It is bilateral. It is constant. There is no vomiting. There is no diaphoresis. There is intermittent shortness of breath, although this is chronic and associated with a cough. There are no DVT or pulmonary embolus risk factors. Of note, this patient presented for identical complaints in September 2017. She had an extensive medical workup. She had a nuclear stress test which was a normal study. She had an MRI of the brain, which was found to be unremarkable. She had a CT angiogram of the neck which was unremarkable. She had a carotid duplex which was done, which was unremarkable. She denies midline neck pain. She denies bladder or bowel retention, incontinence. He makes no complaint of neck pain, ocular change, visual change, sore throat, urinary symptoms, and she denies muscular skeletal pain, rash, fever. -: Gradual, days(s) Location: chest, left, upper extremity Radiation: extremity Severity scale (0 -10): 0 Consistency: constant Improves with: none Worsens with: none - Related Data Home Medications Medication Instructions Recorded Confirmed Last Taken AtorvaSTATin [Lipitor] 20 mg PO QHS 09/27/17 09/27/17 Unknown Citalopram [Celexa] 10 mg PO QDAY 09/27/17 09/27/17 Unknown amLODIPine [Norvasc] 5 mg PO DAILY 09/27/17 09/27/17 Unknown metFORMIN [Glucophage] 500 mg PO DAILY 09/27/17 09/27/17 Unknown Previous Rx's Medication Instructions Recorded Last Taken Type Aspirin [Aspirin BABY CHEW TAB] 81 mg PO QDAY #30 tab.chew 09/29/17 Unknown Rx Allergies Allergy/AdvReac Type Severity Reaction Status Date / Time sulfamethoxazole Allergy Nausea Verified 09/27/17 19:49 [From Bactrim] trimethoprim [From Bactrim] Allergy Nausea Verified 09/27/17 19:49 ED Review of Systems ROS: Stated complaint: LEFT SIDED NUMBNESS Other details as noted in HPI Constitutional: denies: fever Eyes: denies: eye discharge ENT: denies: epistaxis Respiratory: cough, shortness of breath Cardiovascular: chest pain Gastrointestinal: nausea. denies: abdominal pain, vomiting Genitourinary: denies: dysuria Musculoskeletal: denies: back pain, arthralgia, myalgia Skin: denies: rash Neurological: headache, numbness, paresthesias ED Past Medical Hx - Past Medical History Previous Medical History?: Yes Hx Hypertension: Yes Hx Heart Attack/AMI: No Hx Congestive Heart Failure: No Hx Diabetes: Yes Hx Liver Disease: No Hx Renal Disease: No Hx Arthritis: No Hx Seizures: No Hx Asthma: No Hx COPD: No Hx Dementia: No Hx HIV: No Additional medical history: TIA, High Cholestrol - Surgical History Past Surgical History?: Yes Hx Coronary Stent: No Hx Open Heart Surgery: No Hx Pacemaker: No Additional Surgical History: Back SX - Social History Smoking Status: Never Smoker Substance Use Type: None - Medications Home Medications: Home Medications Medication Instructions Recorded Confirmed Last Taken Type AtorvaSTATin [Lipitor] 20 mg PO QHS 09/27/17 09/27/17 Unknown History Citalopram [Celexa] 10 mg PO QDAY 09/27/17 09/27/17 Unknown History amLODIPine [Norvasc] 5 mg PO DAILY 09/27/17 09/27/17 Unknown History metFORMIN [Glucophage] 500 mg PO DAILY 09/27/17 09/27/17 Unknown History Aspirin [Aspirin BABY CHEW TAB] 81 mg PO QDAY #30 tab.chew 09/29/17 Unknown Rx ED Physical Exam - General Limitations: No Limitations General appearance: alert, in no apparent distress - Head Head exam: Present: atraumatic, normocephalic - Eye Eye exam: Present: normal appearance, PERRL, EOMI, other (visual acuity intact to finger counting, color perception, reading at a close distance). Absent: nystagmus - ENT ENT exam: Present: normal exam, normal orophraynx, mucous membranes moist, normal external ear exam - Neck Neck exam: Present: normal inspection, full ROM. Absent: tenderness, meningismus - Respiratory Respiratory exam: Present: normal lung sounds bilaterally. Absent: respiratory distress, wheezes, rales, rhonchi, stridor, chest wall tenderness - Cardiovascular Cardiovascular Exam: Present: regular rate, normal rhythm, normal heart sounds. Absent: bradycardia, tachycardia, irregular rhythm, systolic murmur, diastolic murmur, rubs, gallop - GI/Abdominal GI/Abdominal exam: Present: soft. Absent: distended, tenderness, guarding, rebound, rigid, pulsatile mass - Extremities Exam Extremities exam: Present: normal inspection, full ROM, other (2+ pulses noted in the bilateral upper, lower extremities. Compartments soft. No long bony tenderness. The pelvis is stable.). Absent: pedal edema, joint swelling, calf tenderness - Back Exam Back exam: Present: normal inspection, full ROM. Absent: tenderness, CVA tenderness (R), CVA tenderness (L), muscle spasm, vertebral tenderness - Neurological Exam Neurological exam: Present: alert, oriented X3, motor sensory deficit (there is decreased sensation to light touch on the medial aspect of the left upper extremity. Sensation to light touch is spared on the lateral aspect of the left upper extremity. Sensation is intact to proprioception and pinch equally in the bilateral upper extremities. Sensation is intact to light touch and proprioception equally in the bilateral lower extremities.), other (there is no facial droop. The tongue is midline. Visual acuity grossly intact. Extraocula r movements are intact bilaterally. V1, V2, V3 intact bilaterally. 5 out of 5 strength in 4 extremities bilaterally.) - Psychiatric Psychiatric exam: Present: anxious - Skin Skin exam: Present: warm, dry, intact, normal color. Absent: rash ED Course Vital Signs 12/26/18 20:32 Temperature 98 F Pulse Rate 97 H Respiratory 16 Rate Blood Pressure 161/83 [Left] O2 Sat by Pulse 98 Oximetry ED Medical Decision Making - Lab Data Result diagrams: 12/26/18 20:39 12/26/18 20:39 Vital Signs 12/26/18 20:32 Temperature 98 F Pulse Rate 97 H Respiratory 16 Rate Blood Pressure 161/83 [Left] O2 Sat by Pulse 98 Oximetry Labs 12/26/18 12/26/18 12/26/18 20:39 20:39 20:39 WBC 11.7 H RBC 5.12 H Hgb 13.6 Hct 41.7 MCV 81 MCH 27 L MCHC 33 RDW 13.9 Plt Count 254 Lymph % (Auto) 30.3 Glenn % (Auto) 5.4 Eos % (Auto) 1.8 Baso % (Auto) 1.3 Lymph # 3.5 Glenn # 0.6 Eos # 0.2 Baso # 0.2 H Seg Neutrophils % 61.2 Seg Neutrophils # 7.2 PT 12.4 INR 0.87 APTT 30.2 Sodium 142 Potassium 4.6 Chloride 105.6 Carbon Dioxide 22 Anion Gap 19 BUN 12 Creatinine 0.8 Estimated GFR > 60 BUN/Creatinine Ratio 15 Glucose 108 H Calcium 9.6 Troponin T < 0.010 NT-Pro-B Natriuret Pep 12/26/18 20:46 WBC RBC Hgb Hct MCV MCH MCHC RDW Plt Count Lymph % (Auto) Glenn % (Auto) Eos % (Auto) Baso % (Auto) Lymph # Glenn # Eos # Baso # Seg Neutrophils % Seg Neutrophils # PT INR APTT Sodium Potassium Chloride Carbon Dioxide Anion Gap BUN Creatinine Estimated GFR BUN/Creatinine Ratio Glucose Calcium Troponin T NT-Pro-B Natriuret Pep 10.27 - EKG Data -: EKG Interpreted by [facility] EKG shows normal: sinus rhythm Rate: normal - EKG Data When compared to previous EKG there are: no significant change 12/26/18 23:18 EKG shows a sinus bradycardia, 59 beats per minute, left axis deviation, left anterior fascicular block, low voltage, abnormal EKG, not consistent with ST elevation myocardial infarction, unchanged from prior EKG from 09/28/2017 - Radiology Data Radiology results: report reviewed, image reviewed X-ray of the chest is negative for acute disease. Noncontrast CT scan of the brain is negative for acute disease. - Medical Decision Making Differential diagnosis, including not limited to: Cervical radiculopathy, transient ischemic attacks, GERD, gastritis, hiatal hernia, pneumonia, acute coronary syndrome Assessment and plan: 63-year-old female with 2 complaints Complaint #1, left upper extremity numbness, starting distal to proximal, spari ng the lateral aspect of the left upper extremity, with no midline cervical spine tenderness, appropriate sensations to proprioception and pinch in the upper and lower extremities, not suggestive of acute cord compression, much more likely to be cervical radiculopathy. Has NIH score of 1, not a TPA candidate given duration of symptoms, very unlikely to be large vessel occlusion given symptoms, patient seen and evaluated by stroke neurology, Dr. Tova Woods, who recommends admission for presumed s ubacute stroke workup. Of note, upon review of patient's old medical records, echocardiogram with bubble study was recommended, and not performed, therefore, patient will likely benefit from having the study performed. Case was presented to the Hospital physician, Dr. Delgado, who has accepted the p atient to the medical service for evaluation of TIA/subacute stroke versus peripheral radiculopathy. Complaint #2, chest pressure. Present for a few days. Not tachycardic, not hypoxic, no pulmonary embolus or DVT risk factors, low risk by well's criteria, troponin negative, EKG unchanged from prior, with a negative nuclear stress test last year. Unlikely to be emergent pathology, we will treat supportively and symptomatically, will defer to inpatient team to further evaluate and manage. Unlikely to be aortic dissection, has equal pulses in the upper, lower extremities, not especially hypertensive, and x-ray the chest appears to be unremarkable. Please note that the patient's presentation today is very similar to her prior presentation in September 2017. Critical care attestation.: If time is entered above; I have spent that time in minutes in the direct care of this critically ill patient, excluding procedure time. ED Disposition Clinical Impression: Left arm numbness Headache Qualifiers: Headache type: unspecified Headache chronicity pattern: unspecified pattern Intractability: not intractable Qualified Code(s): R51 - Headache Chest pain Qualifiers: Chest pain type: unspecified Qualified Code(s): R07.9 - Chest pain, unspecified Disposition: OP ADMIT IP TO THIS HOSP Is pt being admited?: Yes Does the pt Need Aspirin: Yes Condition: Good Instructions: Chest Pain (ED) Referrals: EVELIN DIAMOND MD [Staff Physician] - 3-5 Days
--- NOTE | 2018-12-26 22:41 | Consultation ---
History of Present Illness History of present illness: [facility] Impression: Patient with recurrent left arm numbness. Likely cervical radicular/peripheral, but rule out right hemispheric stroke with MRI brain wo. Not a tpa candidate due to: out of window Not an KATLYN candidate due to: out of window Differential Diagnosis: 1. Cardioembolic stroke 2. Small vessel disease/lacune 3. Thromboembolic, [id number] mechanism 4. Hypercoagulable state-related infarct 5. Transient ischemic attack 6. Thrombotic mechanism, large artery disease Comments: Door time: 1937 [facility] contacted: 2224 [facility] at bedside: 2230 NIHSS assessment time: 2232 Recommendations: MRI brain wo - if negative, then MRI C-spine wo inpatient neurology consultation Inpatient stroke evaluation as per Neurology/ Internal Medicine Discussed with ED MD CC: stroke alert History of Present Illness Patient is a63 year old woman presenting with 4 days of left arm numbness. States it involves the arm and digits 3-5. Had prior episode with negative stroke work up. No neck/arm pain. No weakness, gait change, vision loss, speech/language changes, SHEPARD, CP. Diagnostic: CT head wo - nothing acute Exam: NIHSS score: 1 Mild left arm numbness Medical Decision Making: - Extensive number of diagnosis or management options are considered above. - Extensive amount of complex data reviewed. - High risk of complication and/or morbidity or mortality are associated with differential diagnostic considerations above. - There may be Uncertain outcome and increased probability of prolonged functional impairment or high probability of severe prolonged functional impairment associated with some of these differential diagnosis. Medical Data Reviewed: 1.Data reviewed include clinical labs, radiology, Medical Tests; 2.Tests results discussed w/performing or interpreting physician; 3.Obtaining/reviewing old medical records; 4.Obtaining case history from another source; 5.Independent review of image, tracing or specimen. Patient was informed the Neurology Consult would happen via TeleHealth consult by way of interactive audio and video telecommunications and consented to r eceiving care in this manner. Medications and Allergies Allergies Allergy/AdvReac Type Severity Reaction Status Date / Time sulfamethoxazole Allergy Nausea Verified 09/27/17 19:49 [From Bactrim] trimethoprim [From Bactrim] Allergy Nausea Verified 09/27/17 19:49 Home Medications Medication Instructions Recorded Confirmed Last Taken Type AtorvaSTATin [Lipitor] 20 mg PO QHS 09/27/17 09/27/17 Unknown History Citalopram [Celexa] 10 mg PO QDAY 09/27/17 09/27/17 Unknown History amLODIPine [Norvasc] 5 mg PO DAILY 09/27/17 09/27/17 Unknown History metFORMIN [Glucophage] 500 mg PO DAILY 09/27/17 09/27/17 Unknown History Aspirin [Aspirin BABY CHEW TAB] 81 mg PO QDAY #30 tab.chew 09/29/17 Unknown Rx Physical Examination - Vital Signs Vital Signs: Vital Signs Temp Pulse Resp BP Pulse Ox 98 F 97 H 16 161/83 98 12/26/18 20:32 12/26/18 20:32 12/26/18 20:32 12/26/18 20:32 12/26/18 20:32 - Level of Consciousness 1a. Level of Consciousness: alert/keenly responsive - LOC Questions 1b. LOC Questions: answers both correctly - LOC Command 1c. LOC Commands: performs tasks correctly - Best Gaze 2. Best Gaze: normal - Visual 3. Visual: no visual loss - Facial Palsy 4. Facial Palsy: normal symmetrical movement - Motor Arm 5a. Motor Arm Left: no drift 5b. Motor Arm Right: no drift - Motor Leg 6a. Motor Leg Left: no drift 6b. Motor Leg Right: no drift - Limb Ataxia 7. Limb Ataxia: absent - Sensory 8. Sensory: mild/moderate sensory loss - Best Language 9. Best Language: no aphasia - Dysarthria 10. Dysarthria: normal - Extinction and Inattention 11. Extinction/Inattention: no abnormality - Scoring Total Score: 1 Stroke Severity: Minor Stroke Results - Laboratory Findings CBC and BMP: 12/26/18 20:39 12/26/18 20:39 Abnormal Lab Findings: Abnormal Labs 12/26/18 12/26/18 20:39 20:39 WBC 11.7 H RBC 5.12 H MCH 27 L Baso # 0.2 H Glucose 108 H
--- NOTE | 2018-12-26 23:07 | XRay Report ---
PROCEDURE: XR CHEST ROUTINE 2V TECHNIQUE: PA and lateral chest radiographs were obtained. HISTORY: Chest Pain COMPARISONS: September 27, 2017. FINDINGS: Heart: Normal. Mediastinum/Vessels: Normal. Lungs/Pleural space: Normal. Bony thorax: No acute osseous abnormality. IMPRESSION: Normal examination. This document is electronically signed by eKegan Serna MD., December 26 2018 11:05:17 PM ET
[2018-12-26 23:24] LABS: Bilirubin,Urine NEG (Negative); Blood,Urine NEG (Negative); Color,Urine Yellow (Yellow); Mucus,Urine FEW /HPF; Protein,Urine <15 mg/dL mg/dL (Negative); Urobilinogen,Urine < 2.0 mg/dL (<2.0)
[2018-12-26] MEDS ORDERED: PEPCID IV ONE (23:26)
[2018-12-26] MEDS ORDERED: BABY ASPIRIN PO ONE (23:26)
[2018-12-26] MEDS ORDERED: TYLENOL PO ONE (23:26)
--- NOTE | 2018-12-26 23:42 | History and Physical Report ---
History of Present Illness Date of examination: 12/26/18 History of present illness: 63-year-old woman with a history of hypertension, diabetes, neuropathy, TIA, hyperlipidemia comes to the emergency room with complaints of numbness of the left fourth and fifth digit, radiating to the neck that started on Monday. Also complain of chest pain, lacross the chest that started 4 days ago. She states that heavy sensation, intermittent every 2 minutes, intensity 4/10, no radiation, cannot identify exacerbating factors. Admits to nausea, shortness of breath,no palpitation, diaphoresis. No trauma. Stress test in 2018 negative Constitutional: no weight loss, chills, fever Ears, eyes, nose, mouth and throat: no nasal congestion, no nasal discharge, no sinus pressure, no vision change, no red eye. Neck: No neck pain or rigidity. Cardiovascular:no palpitations Respiratory: no cough, +shortness of breath Gastrointestinal: no hematochezia, abdominal pain Genitourinary : no frequency , no hematuria Musculoskeletal: no joint swelling or muscle ache Integumentary: no rash, no pruritis Neurological: no focal weakness Endocrine: no cold or heat intolerance, no polyuria or polydipsia Hematologic/Lymphatic: no easy bruising, no easy bleeding, no gland swelling Allergic/Immunologic: no urticaria, no angioedema. PAST MEDICAL HISTORY:hypertension,diabetes, neuropathy, TIA, hyperlipidemia PAST SURGICAL HISTORY: Back surgery SOCIAL HISTORY: Denies alcohol, drugs, tobacco FAMILY HISTORY: Hypertension Medications and Allergies Allergies Allergy/AdvReac Type Severity Reaction Status Date / Time sulfamethoxazole Allergy Nausea Verified 09/27/17 19:49 [From Bactrim] trimethoprim [From Bactrim] Allergy Nausea Verified 09/27/17 19:49 Home Medications Medication Instructions Recorded Confirmed Last Taken Type AtorvaSTATin [Lipitor] 20 mg PO QHS 09/27/17 12/27/18 Unknown History amLODIPine [Norvasc] 5 mg PO DAILY 09/27/17 12/27/18 Unknown History metFORMIN [Glucophage] 500 mg PO DAILY 09/27/17 12/27/18 Unknown History Aspirin [Aspirin BABY CHEW TAB] 81 mg PO QDAY #30 tab.chew 09/29/17 12/27/18 Unknown Rx Gabapentin [Neurontin] 300 mg PO QPM #30 capsule 12/28/18 Unknown Rx Exam - Physical Exam Narrative exam: General Apperance: The patient lying in bed, breathing comfortable HEENT: Normocephalic, atraumatic. Pupils equally round and reactive to light, EOMI, no sclericterus or JVD or thyromegaly or nodule. , no carotid bruit, mucous membranes moist, no exudate or erythema Heart: S1-S2, regular is rhythm Lungs: Clear to auscultation bilaterally, breathing comfortable Abdomen: Positive bowel sounds, soft, nontender, nondistended, no organomegaly Extremities: No edema cyanosis clubbing Skin: no rash, nodule, warm and dry Neuro: cranial nerves 2-12 intact, speech is fluent, intact motor, paresthesia of left foot and fifth digit extending laterally up to the neck - Constitutional Vitals: Temp Pulse Resp BP Pulse Ox 98 F 58 L 12 156/81 92 12/26/18 20:32 12/26/18 23:15 12/26/18 23:15 12/26/18 23:15 12/26/18 23:15 Results - Labs CBC & Chem 7: 12/28/18 04:45 12/26/18 20:39 Labs: Abnormal lab results 12/26/18 12/26/18 12/26/18 Range/Units 20:39 20:39 Unknown WBC 11.7 H (4.5-11.0) K/mm3 RBC 5.12 H (3.65-5.03) M/mm3 MCH 27 L (28-32) pg Baso # 0.2 H (0.0-0.1) K/mm3 Glucose 108 H (65-100) mg/dL Urine WBC (Auto) 82.0 H (0.0-6.0) /HPF - Imaging and Cardiology EKG: image reviewed Chest x-ray: report reviewed CT Scan - head: report reviewed Assessment and Plan Assessment LUE paresthesia, radiculopathy, less likely CVA chest pain UTI hypertension GERD Plan Admit to medicine Neurology recommend stroke work up Obtain MRI of the neck and head echo Do neurochecks checks, start aspirin, statin Consult Neurology, PT, OT Check cardiac enzymes, consult cardiology DVT prophalaxis, start rocephin Continue appropriate outpatient medications
[2018-12-27] MEDS ORDERED: ZOFRAN IV PRN (01:22)
[2018-12-27] MEDS ORDERED: SODIUM CHLORIDE FLUSH SYRINGE 10 ML IV PRN (01:22)
[2018-12-27] MEDS ORDERED: DULCOLAX PR PRN (01:22)
[2018-12-27] MEDS ORDERED: MILK OF MAGNESIA PO PRN (01:22)
[2018-12-27 03:05] LABS: Creatine Kinase MB 3.4 ng/mL (0.0-4.0)
--- NOTE | 2018-12-27 09:59 | Progress Note ---
Assessment and Plan Assessment and plan: Assessment:LUE paresthesia, r/o radiculopathy, r/o CVA chest pain UTI hypertension GERD Plan Admitted to medicine Neurology recommend stroke work up Obtain MRI of the neck and head echo today Do neurochecks checks, start aspirin, statin Consult Neurology, PT, OT Check cardiac enzymes, consult cardiology DVT prophalaxis, start rocephin Continue appropriate outpatient medications Continue Rocephin for UTI History Interval history: Chest pain Numbness left hand Hospitalist Physical - Physical exam Narrative exam: Gen: Not in acute distress, lying in bed, HEENT: Normocephalic, atraumatic Neck: supple, no JVD Heart: S1 and S2 reg, no murmurs, rubs or gallop Lungs: Clear, no crackles, no wheeze Abd: soft, non tender, non distended, normal BS Ext: No edema, no clubbing, no cyanosis, Neuro: Awake,alert, oriented x 3, moves all ext, numbness fingers left hand Psych:Normal mood - Constitutional Vitals: Temp Pulse Resp BP Pulse Ox 97.8 F 51 L 20 132/64 98 12/27/18 05:50 12/27/18 05:50 12/27/18 05:50 12/27/18 05:50 12/27/18 05:50 Results - Labs CBC & Chem 7: 12/26/18 20:39 12/26/18 20:39 Labs: Laboratory Last Values WBC 11.7 K/mm3 (4.5-11.0) H 12/26/18 20:39 RBC 5.12 M/mm3 (3.65-5.03) H 12/26/18 20:39 Hgb 13.6 gm/dl (10.1-14.3) 12/26/18 20:39 Hct 41.7 % (30.3-42.9) 12/26/18 20:39 MCV 81 fl (79-97) 12/26/18 20:39 MCH 27 pg (28-32) L 12/26/18 20:39 MCHC 33 % (30-34) 12/26/18 20:39 RDW 13.9 % (13.2-15.2) 12/26/18 20:39 Plt Count 254 K/mm3 (140-440) 12/26/18 20:39 Lymph % (Auto) 30.3 % (13.4-35.0) 12/26/18 20:39 [place] % (Auto) 5.4 % (0.0-7.3) 12/26/18 20:39 Eos % (Auto) 1.8 % (0.0-4.3) 12/26/18 20:39 Baso % (Auto) 1.3 % (0.0-1.8) 12/26/18 20:39 Lymph # 3.5 K/mm3 (1.2-5.4) 12/26/18 20:39 [place] # 0.6 K/mm3 (0.0-0.8) 12/26/18 20:39 Eos # 0.2 K/mm3 (0.0-0.4) 12/26/18 20:39 Baso # 0.2 K/mm3 (0.0-0.1) H 12/26/18 20:39 Seg Neutrophils % 61.2 % (40.0-70.0) 12/26/18 20:39 Seg Neutrophils # 7.2 K/mm3 (1.8-7.7) 12/26/18 20:39 PT 12.4 Sec. (12.2-14.9) 12/26/18 20:39 INR 0.87 (0.87-1.13) 12/26/18 20:39 APTT 30.2 Sec. (24.2-36.6) 12/26/18 20:39 Sodium 142 mmol/L (137-145) 12/26/18 20:39 Potassium 4.6 mmol/L (3.6-5.0) 12/26/18 20:39 Chloride 105.6 mmol/L (98-107) 12/26/18 20:39 Carbon Dioxide 22 mmol/L (22-30) 12/26/18 20:39 19 mmol/L 12/26/18 20:39 BUN 12 mg/dL (7-17) 12/26/18 20:39 0.8 mg/dL (0.7-1.2) 12/26/18 20:39 Estimated GFR > 60 ml/min 12/26/18 20:39 15 % 12/26/18 20:39 Glucose 108 mg/dL (65-100) H 12/26/18 20:39 Calcium 9.6 mg/dL (8.4-10.2) 12/26/18 20:39 174 units/L (30-135) H 12/27/18 02:06 CK-MB (CK-2) 3.4 ng/mL (0.0-4.0) 12/27/18 02:06 CK-MB (CK-2) Rel Index 1.9 (0-4) 12/27/18 02:06 < 0.010 ng/mL (0.00-0.029) 12/27/18 02:06 NT-Pro-B Natriuret Pep 10.27 pg/mL (0-900) 12/26/18 20:46 Yellow (Yellow) 12/26/18 Unknown Cloudy (Clear) 12/26/18 Unknown 5.0 (5.0-7.0) 12/26/18 Unknown Ur Specific [place] 1.021 (1.003-1.030) 12/26/18 Unknown <15 mg/dl mg/dL (Negative) 12/26/18 Unknown Neg mg/dL (Negative) 12/26/18 Unknown Neg mg/dL (Negative) 12/26/18 Unknown Neg (Negative) 12/26/18 Unknown Neg (Negative) 12/26/18 Unknown Neg (Negative) 12/26/18 Unknown < 2.0 mg/dL (<2.0) 12/26/18 Unknown Ur Leukocyte Esterase Lg (Negative) 12/26/18 Unknown 82.0 /HPF (0.0-6.0) H 12/26/18 Unknown 11.0 /HPF (0.0-6.0) 12/26/18 Unknown U Epithel Cells (Auto) 9.0 /HPF (0-13.0) 12/26/18 Unknown Few /HPF 12/26/18 Unknown Few /HPF 12/26/18 Unknown Active Medications - Current Medications Current Medications: Generic Name Dose Route Start Last Admin Trade Name Freq PRN Reason Stop Dose Admin Acetaminophen 650 mg 12/27/18 01:22 Tylenol PO Q4H PRN Pain, Mild (1-3) Aspirin 325 mg 12/27/18 10:00 Aspirin PO QDAY [facility] Atorvastatin Calcium 40 mg 12/27/18 22:00 Lipitor PO QHS [facility] Bisacodyl 10 mg 12/27/18 01:22 Dulcolax [place] QDAY PRN Constipation Enoxaparin Sodium 40 mg 12/27/18 10:00 Lovenox SUB-Q QDAY@1000 [facility] Ceftriaxone Sodium 1 gm in 50 mls @ 100 mls/hr 12/27/18 06:00 Rocephin/Ns 1 Gm/50 Ml IV Q24H [facility] Protocol Magnesium Hydroxide 30 ml 12/27/18 01:22 Milk Of Magnesia PO Q4H PRN Constipation Ondansetron HCl 4 mg 12/27/18 01:22 Zofran IV Q8H PRN Nausea And Vomiting Sodium Chloride 10 ml 12/27/18 01:22 Sodium Chloride Flush Syringe 10 Ml IV PRN PRN LINE FLUSH
[2018-12-27] MEDS ORDERED: LOVENOX SUB-Q SCH (10:00)
[2018-12-27 10:28] LABS: Creatine Kinase MB 3.3 ng/mL (0.0-4.0)
--- NOTE | 2018-12-27 10:34 | Consultation ---
History of Present Illness Consult date: 12/27/18 Consult reason: chest pain History of present illness: This is a 63 year old woman who gives a history of TIA, hypertension, high cholesterol, diabetes and sleep apnea noncompliant with CPAP machine. She presents to this hospital from Urgent Care with left upper extremity numbness and weakness, admitted for CVA workup. In addition, while in the emergency department, patient complained of chest pain, intermittent for several days. Cardiac consultation has been requested. Patient denies unusual shortness of breath, denies palpitations, denies dizziness and she had no syncope. Her latest cardiac workup was a stress thallium test done a year ago that showed a normal myocardial perfusion scan. 12 lead ECG is sinus rhythm with low voltage. Medications and Allergies Allergies Allergy/AdvReac Type Severity Reaction Status Date / Time sulfamethoxazole Allergy Nausea Verified 09/27/17 19:49 [From Bactrim] trimethoprim [From Bactrim] Allergy Nausea Verified 09/27/17 19:49 Home Medications Medication Instructions Recorded Confirmed Last Taken Type AtorvaSTATin [Lipitor] 20 mg PO QHS 09/27/17 09/27/17 Unknown History Citalopram [Celexa] 10 mg PO QDAY 09/27/17 09/27/17 Unknown History amLODIPine [Norvasc] 5 mg PO DAILY 09/27/17 09/27/17 Unknown History metFORMIN [Glucophage] 500 mg PO DAILY 09/27/17 09/27/17 Unknown History Aspirin [Aspirin BABY CHEW TAB] 81 mg PO QDAY #30 tab.chew 09/29/17 Unknown Rx Active Meds: Active Medications Acetaminophen (Tylenol) 650 mg PO Q4H PRN PRN Reason: Pain, Mild (1-3) Aspirin (Aspirin) 325 mg PO QDAY THERESA Atorvastatin Calcium (Lipitor) 40 mg PO QHS THERESA Bisacodyl (Dulcolax) 10 mg MN QDAY PRN PRN Reason: Constipation Enoxaparin Sodium (Lovenox) 40 mg SUB-Q QDAY@1000 THERESA Ceftriaxone Sodium (Rocephin/Ns 1 Gm/50 Ml) 1 gm in 50 mls @ 100 mls/hr IV Q24H THERESA; Protocol Magnesium Hydroxide (Milk Of Magnesia) 30 ml PO Q4H PRN PRN Reason: Constipation Ondansetron HCl (Zofran) 4 mg IV Q8H PRN PRN Reason: Nausea And Vomiting Sodium Chloride (Sodium Chloride Flush Syringe 10 Ml) 10 ml IV PRN PRN PRN Reason: LINE FLUSH Physical Examination Vital Signs Temp Pulse Resp BP Pulse Ox 98 F 97 H 16 161/83 98 12/26/18 20:32 12/26/18 20:32 12/26/18 20:32 12/26/18 20:32 12/26/18 20:32 General appearance: no acute distress HEENT: Positive: PERRL Neck: Positive: trachea midline Cardiac: Positive: Reg Rate and Rhythm Lungs: Positive: Decreased Breath Sounds Neuro: Positive: Grossly Intact, Weakness Extremities: Absent: edema Results 12/26/18 20:39 12/26/18 20:39 Cardiac Enzymes 12/27/18 12/27/18 Range/Units 02:06 08:57 CK-MB (CK-2) 3.4 3.3 (0.0-4.0) ng/mL Coagulation 12/26/18 Range/Units 20:39 PT 12.4 (12.2-14.9) Sec. INR 0.87 (0.87-1.13) APTT 30.2 (24.2-36.6) Sec. CBC 12/26/18 Range/Units 20:39 WBC 11.7 H (4.5-11.0) K/mm3 RBC 5.12 H (3.65-5.03) M/mm3 Hgb 13.6 (10.1-14.3) gm/dl Hct 41.7 (30.3-42.9) % Plt Count 254 (140-440) K/mm3 Lymph # 3.5 (1.2-5.4) K/mm3 [place] # 0.6 (0.0-0.8) K/mm3 Eos # 0.2 (0.0-0.4) K/mm3 Baso # 0.2 H (0.0-0.1) K/mm3 Comprehensive Metabolic Panel 12/26/18 Range/Units 20:39 Sodium 142 (137-145) mmol/L Potassium 4.6 (3.6-5.0) mmol/L Chloride 105.6 (98-107) mmol/L Carbon Dioxide 22 (22-30) mmol/L BUN 12 (7-17) mg/dL Creatinine 0.8 (0.7-1.2) mg/dL Glucose 108 H (65-100) mg/dL Calcium 9.6 (8.4-10.2) mg/dL Assessment and Plan LUE paresthesia Chest pain, atypical Prior TIA Hypertension Diabetes Hx of sleep apnea noncompliant with CPAP machine HLP
[2018-12-27] MEDS: ASPIRIN PO SCH (10:56)
[2018-12-27] MEDS: TYLENOL PO PRN ×2 (10:56→21:05)
[2018-12-27] MEDS: LOVENOX SUB-Q SCH (10:57)
[2018-12-27] MEDS: ROCEPHIN/NS 1 GM/50 ML 1 GM/50 ML BAG IV SCH (12:57)
--- NOTE | 2018-12-27 13:58 | Magnetic Resonance Report ---
MRI OF THE BRAIN WITHOUT CONTRAST: HISTORY: Stroke PROCEDURE: Multiplanar, multisequence MR imaging of the brain without IV contrast was performed. FINDINGS: Compared to the CT head dated 12/26/18. The brain parenchyma signal intensity and its fr[place] white interface are within normal limits on all sequences. No evidence for acute ischemia, hemorrhage or mass. No chronic infarct or extra-axial fluid collection. The midline structures are central. The basal cisterns are patent. Normal ventricular size. The orbital cavities and sella turcica demonstrate no abnormality. The visualized paranasal sinuses and mastoid air cells are well aerated. IMPRESSION: Unremarkable non-enhanced MRI of the brain.
--- NOTE | 2018-12-27 16:29 | Magnetic Resonance Report ---
PROCEDURE: MRA HEAD WO CON TECHNIQUE: MRA examination of the brain without IV contrast HISTORY: Left-sided headache, left arm numbness, stroke COMPARISONS: Head CT 12/26/2018 FINDINGS: Note: Assessment of arterial stenosis is based on the [place] Symptomatic Carotid Endarterecto my Trial (NASCET) stenosis criteria. Patient motion artifact degrades image quality and limits the examination. Carotid siphon: Normal. Anterior cerebral: Normal. Middle cerebral: Normal. Posterior cerebral: Normal. Developmental variation with hybrid circulation Vertebral: Normal. Basilar: Normal. Occlusion: None. Vascular malformations: None. Aneurysm: None. IMPRESSION: No MRA evidence of brain vascular pathology This document is electronically signed by Carlos Yo MD., December 27 2018 04:27:13 PM ET
--- NOTE | 2018-12-27 17:15 | Progress Note ---
Assessment and Plan This is a 63 YO F with radiating left arm pain- exam c/w cervical radiculopathy Recommend: MRI cervical spine Will start gabapentin 300 mg hs, increase as needed, tolerated. Could also consider steroid burst/dosepak depending on how she responds to the gabapentin. Symptoms appear fairly mild Will need ortho/neurosurg eval if there is severe foraminal stenosis or cord compression(unlikely). POC discussed with patient and family members at bedside. Subjective Date of service: 12/27/18 Interval history: Pt initially seen by teleneuro in the ED. Pt with left radiating arm pain and paresthesias. Symptoms about the same. MRI Brain unremarkable. Objective - Vital Sign Vital Signs - 12hr 12/27/18 12/27/18 12/27/18 05:50 08:15 09:59 Temperature 97.8 F 98.3 F Pulse Rate 51 L 52 L 56 L Respiratory 20 18 Rate Blood Pressure 132/64 140/73 O2 Sat by Pulse 98 98 Oximetry - General Apperance Constitutional: comfortable - EENT EENT: PERRL, mucous membranes moist - Respiratory Respiratory: lungs clear - Cardiovascular Extremities: no peripheral edema bilat - Gastrointestinal Gastrointestinal: normoactive bowel sounds - Integumentary Integumentary: normal - Neurologic Cranial nerve examination: PERRL, EOMI, V1/V2/V3 grossly intact, face symmetric, tongue midline Motor examination - right side: 5/5: biceps, triceps, wrist flexion, wrist extension, uniform designer, hip flexors, knee extensors, dorsiflexion, toe extension (EHL), plantarflexion Motor examination - left side: 5/5: biceps, triceps, wrist flexion, wrist extension, uniform designer, hip flexors, knee extensors, dorsiflexion, toe extension (EHL), plantarflexion Detailed sensory examination: intact Reflexes: 1+: ankle, bicep, knee, tricep - Psychiatric Psychiatric: mood/affect appropriate - Laboratory Findings CBC and BMP: 12/26/18 20:39 12/26/18 20:39 Abnormal Lab Findings: Abnormal Labs 12/26/18 12/26/18 12/26/18 20:39 20:39 Unknown WBC 11.7 H RBC 5.12 H MCH 27 L Baso # 0.2 H Glucose 108 H Total Creatine Kinase Urine WBC (Auto) 82.0 H 12/27/18 12/27/18 02:06 08:57 WBC RBC MCH Baso # Glucose Total Creatine Kinase 174 H 179 H Urine WBC (Auto) - Diagnostic Findings Additional findings: MRI Brain unremarkable
[2018-12-27] MEDS: NEURONTIN PO SCH (18:53)
[2018-12-27] MEDS ORDERED: IBUPROFEN PO PRN (22:30)
[2018-12-28] MEDS: ROCEPHIN/NS 1 GM/50 ML 1 GM/50 ML BAG IV SCH (05:09)
[2018-12-28 06:35] LABS: Hematocrit 41.3 % (30.3-42.9); Hemoglobin 13.5 gm/dl (10.1-14.3); Mean Corpuscular HGB Conc 33 % (30-34); Mean Corpuscular Volume 82 fl (79-97); Platelet Count 232 K/mm3 (140-440); Red Blood Count 5.03 M/mm3 (3.65-5.03); Red Cell Distribution Width 13.8 % (13.2-15.2)
[2018-12-28 06:51] LABS: Chol/HDL Ratio 4.66 %
[2018-12-28] MEDS: LOVENOX SUB-Q SCH (09:56)
--- NOTE | 2018-12-28 09:56 | Progress Note ---
Assessment and Plan LUE paresthesia Chest pain, atypical Prior TIA Hypertension Diabetes Hx of sleep apnea noncompliant with CPAP machine HLP Normal LVEF by echocardiogram this admission. Conservative cardiac management. Subjective Date of service: 12/28/18 Interval history: Patient denies chest pain and shortness of breath. Objective Vital Signs Temp Pulse Resp BP Pulse Ox 12/28/18 04:10 98.1 F 54 L 18 139/87 97 12/28/18 01:00 22 12/27/18 23:33 98.0 F 68 18 176/84 94 12/27/18 19:26 98.3 F 18 163/79 12/27/18 17:17 59 L 158/86 96 12/27/18 12:54 98.0 F 63 18 135/76 98 12/27/18 09:59 98.3 F 56 L 18 140/73 98 - Physical Examination General: No Apparent Distress HEENT: Positive: PERRL Neck: Positive: trachea midline Cardiac: Positive: Reg Rate and Rhythm Lungs: Positive: Decreased Breath Sounds Neuro: Positive: Grossly Intact, Weakness Extremities: Absent: edema - Labs and Meds Cardiac Enzymes 12/27/18 Range/Units 08:57 CK-MB (CK-2) 3.3 (0.0-4.0) ng/mL Lipids 12/28/18 Range/Units 04:45 Triglycerides 140 (2-149) mg/dL Cholesterol 210 H (50-199) mg/dL HDL Cholesterol 45 (40-59) mg/dL Cholesterol/HDL Ratio 4.66 % CBC 12/28/18 Range/Units 04:45 WBC 7.9 (4.5-11.0) K/mm3 RBC 5.03 (3.65-5.03) M/mm3 Hgb 13.5 (10.1-14.3) gm/dl Hct 41.3 (30.3-42.9) % Plt Count 232 (140-440) K/mm3
[2018-12-28] MEDS: ASPIRIN PO SCH (10:51)
[2018-12-28] MEDS: TYLENOL PO PRN (10:51)
--- NOTE | 2018-12-28 12:54 | Magnetic Resonance Report ---
MRI CERVICAL SPINE WITHOUT CONTRAST: 12/28/18 07:06:00 CLINICAL: Cervical radiculopathy. TECHNIQUE: Sagittal T1,T2 and STIR and axial gradient T2* sequences on a 1.5 Letty magnet. FINDINGS:Normal vertebral height and alignment. Disc space narrowing at C5-6-6 7. The overall marrow signal is normal. Decreased T2 disc signal at all levels. The spinal cord is normal size with normal signal. The cerebellar tonsils are in normal position. C2-3: A moderate size left paracentral disc-osteophyte producing mild narrowing of the left superior recess and mild narrowing of the left neural foramen. C3-4:Mild circumferential disc bulge producing mild effacement of the thecal sac. Small bilateral uncal osteophytes. No neural foraminal narrowing. C4-5: Intact. C5-6:A large broad-based left paracentral disc-osteophyte producing effacement of the left superior recess. The disc-osteophyte extends into the left neural foramen and produces moderately severe left neural foraminal stenosis. Mild central canal stenosis. C6-7:A large broad-based left paracentral and left foraminal disc-osteophyte producing partial effacement of the left superior recess and moderate left neural foraminal narrowing. C7-T1:Intact. IMPRESSION: Multilevel degenerative disc disease, worse at C5-6 and C6-7 there is significant narrowing of the left superior recess and significant neural foraminal narrowing at both levels. Mild multilevel spinal canal stenosis. No cord lesion.
--- NOTE | 2018-12-28 17:38 | Progress Note ---
Assessment and Plan This is a 63 YO F with radiating left arm pain- exam c/w cervical radiculopathy Recommend: MRI cervical spine shows bugling discs, should follow up with neuro or ortho surgery op. NOt emergent continue gabapentin 300 mg hs, increase as needed, tolerated. No further recommendations, fine for home from a neuro standpoint. POC discussed with patient at bedside. Subjective Date of service: 12/28/18 Interval history: Pt had her cervical MRI. symptoms about the same. Objective - Vital Sign Vital Signs - 12hr 12/28/18 12/28/18 12/28/18 08:31 10:00 10:51 Temperature 98.1 F Pulse Rate 54 L Respiratory 18 20 20 Rate Blood Pressure 161/82 O2 Sat by Pulse 100 Oximetry 12/28/18 12:19 Temperature 97.1 F L Pulse Rate 80 Respiratory 18 Rate Blood Pressure 147/85 O2 Sat by Pulse 96 Oximetry - General Apperance Constitutional: comfortable - EENT EENT: PERRL, mucous membranes dry - Respiratory Respiratory: lungs clear - Cardiovascular Extremities: no peripheral edema bilat - Gastrointestinal Gastrointestinal: normoactive bowel sounds - Neurologic Cranial nerve examination: PERRL, EOMI, V1/V2/V3 grossly intact, face symmetric, tongue midline Detailed motor examination: grossly full strength in - Laboratory Findings CBC and BMP: 12/28/18 04:45 12/26/18 20:39 Abnormal Lab Findings: Abnormal Labs 12/26/18 12/26/18 12/26/18 20:39 20:39 Unknown WBC 11.7 H RBC 5.12 H MCH 27 L Baso # 0.2 H Glucose 108 H Total Creatine Kinase Cholesterol LDL Cholesterol Direct Urine WBC (Auto) 82.0 H 12/27/18 12/27/18 12/28/18 02:06 08:57 04:45 WBC RBC MCH Baso # Glucose Total Creatine Kinase 174 H 179 H Cholesterol 210 H LDL Cholesterol Direct 163 H Urine WBC (Auto) 12/28/18 04:45 WBC RBC MCH 27 L Baso # Glucose Total Creatine Kinase Cholesterol LDL Cholesterol Direct Urine WBC (Auto) - Diagnostic Findings Additional findings: Cervical MRI shows bulging discs at C56 and 67
--- NOTE | 2018-12-28 17:47 | Discharge Summary ---
Providers - Providers Date of Admission: 12/26/18 23:41 Date of discharge: 12/28/18 Attending physician: CHINA BEATTY 12/26/18 22:22 Consult to Physician [CONS] Urgent Comment: Consulting Provider: RASHEED GONZALEZ Physician Instructions: Reason For Exam: left arm numbess ? cervical radiculopathy 12/27/18 Consult to Physician [CONS] Routine Comment: Consulting Provider: CHICA LADD Physician Instructions: Reason For Exam: cp 12/27/18 01:21 Consult to Physician [CONS] Routine Comment: Consulting Provider: DANE PARRY Physician Instructions: Reason For Exam: numbnesx of LUE 12/27/18 01:23 Occupational Therapy Evaluate and Treat [CONS] Routine Comment: Reason For Exam: Neuro deficits Physical Therapy Evaluation and Treat [CONS] Routine Comment: Reason For Exam: Neuro deficits Primary care physician: JENNIFER HOWE Hospitalization Condition: Stable Hospital course: Patient is 63-year-old woman with a history of hypertension, diabetes, neuropathy, TIA, hyperlipidemia presented to the emergency room with complaints of numbness of the left fourth and fifth digit, radiating to the neck. Also complain of chest pain, across the chest that started 4 days earlier. She was admitted, evaluated by neurology. MRI Brain was unremarkable. Cervical spine MRI revealed multilevel DJD. Diagnosis cervical radiculopathy. She was then discharged home to follow with Neurosurgeon or Orthopedic surgeon. Patient does not have a stroke. Total time spent on discharge, 32 mins Disposition: DC-01 TO HOME OR SELFCARE - Discharge Diagnoses (1) Cervical radiculopathy Status: Acute (2) Chest pain Status: Acute Qualifiers: Chest pain type: unspecified Qualified Code(s): R07.9 - Chest pain, unspecified (3) Left arm numbness Status: Acute (4) UTI (urinary tract infection) Status: Acute (5) Hyperlipidemia Status: Acute (6) GERD (gastroesophageal reflux disease) Status: Acute Core Measure Documentation - Palliative Care Palliative Care/ Comfort Measures: Not Applicable - Core Measures Any of the following diagnoses?: none Exam - Constitutional Vitals: Temp Pulse Resp BP Pulse Ox 97.1 F L 80 18 147/85 96 12/28/18 12:19 12/28/18 12:19 12/28/18 12:19 12/28/18 12:19 12/28/18 12:19 Plan Activity: advance as tolerated Diet: low fat, low cholesterol, low salt Additional Instructions: 1.Follow up with PCP or [facility] in 3-5 days. 2.Follow up with Neurology in 1 week. 3.Follow up with neuro-surgeon in 1 week. 4.may return to work on Monday01/02/19 Follow up with: EVELIN DIAMOND MD [Staff Physician] - 3-5 Days Prescriptions: cefUROXime [Ceftin] 500 mg PO Q12H 3 Days tablet Gabapentin [Neurontin] 300 mg PO QPM #30 capsule
[2018-12-28 17:49] VITALS: BP 142/78
[2018-12-28] MEDS: NEURONTIN PO SCH (18:17)
== END 2018-12-28 19:14 | disposition home or self-care (01) | DRG 74 ==
LOC: ED 19:38 → 4A 23:41
PROVIDERS: ADMIT Internal Medicine; ATTEND Internal Medicine
DX: M54.12 Radiculopathy, cervical region (principal); N39.0 Urinary tract infection, site not specified; I10 Essential (primary) hypertension; E11.40 Type 2 diabetes mellitus with diabetic neuropathy, unspecified; R20.2 Paresthesia of skin; K21.9 Gastro-esophageal reflux disease without esophagitis; G47.30 Sleep apnea, unspecified; R07.89 Other chest pain; E78.5 Hyperlipidemia, unspecified; Z86.73 Personal history of transient ischemic attack (TIA), and cerebral infarction without residual deficits; Z82.49 Family history of ischemic heart disease and other diseases of the circulatory system; Z79.899 Other long term (current) drug therapy; Z79.82 Long term (current) use of aspirin; Z88.2 Allergy status to sulfonamides
CPT/HCPCS: 36415; 70450; 70544; 70551; 71046; 72141; 80048; 80061; 81001; 82550; 82553; 83880; 84484; 85025; 85027; 85610; 85730; 87086; 93005; 93010; 93306; 96372; 96374; 99285; G0378; A9270-GY; J0696; J1650

== ENCOUNTER 2019-08-31 14:49 | Emergency (ER) | payer OTHER | END 2019-08-31 15:00 | disposition left against medical advice (07) | LOC: ED 14:49 | DX: R42 Dizziness and giddiness (principal); Z53.21 Procedure and treatment not carried out due to patient leaving prior to being seen by health care provider ==